=== PATIENT | female | born 1960 | race Hispanic/Latino ===

== ENCOUNTER 2020-09-23 12:38 | Outpatient (CLI) | payer OTHER | END 2020-09-23 12:39 | disposition home or self-care (01) | LOC: ULT 12:38 | PROVIDERS: ATTEND Internal Medicine Interventional Cardiology | DX: E85.4 Organ-limited amyloidosis (principal); L99 Other disorders of skin and subcutaneous tissue in diseases classified elsewhere; I08.1 Rheumatic disorders of both mitral and tricuspid valves | CPT/HCPCS: 93306 ==

== ENCOUNTER 2021-12-15 14:17 | Outpatient (CLI) | payer BC, OTHER | END 2021-12-15 14:18 | disposition home or self-care (01) | LOC: RAD 14:17 | PROVIDERS: ATTEND Internal Medicine Critical Care Medicine | DX: R06.00 Dyspnea, unspecified (principal) | CPT/HCPCS: 71046 ==

== ENCOUNTER 2022-12-10 15:32 | Outpatient (CLI) | payer OTHER | END 2022-12-10 15:33 | disposition home or self-care (01) | LOC: RAD 15:32 | PROVIDERS: ATTEND Internal Medicine | DX: R05.9 Cough, unspecified (principal) | CPT/HCPCS: 71046 ==